=== PATIENT | female | born 1970 | race American Indian/Alaskan Native ===

== ENCOUNTER 2021-02-20 11:37 | Outpatient (CLI) | payer OTHER ==
--- NOTE | 2021-02-20 14:19 | XRay Report ---
CLINICAL DATA: BILATERAL KNEE PAIN TECHNICAL DATA: Two views were obtained, AP and lateral of both knees FINDINGS: Right knee: There is no acute fracture or dislocation. Moderate narrowing of the medial component of the femoral tibial articulation is noted. Fibrillation present Left knee: Total knee arthroplasties present IMPRESSION: Degenerative changes right knee as described Signer Name: Uziel Seymour MD Signed: 02/20/2021 2:14 PM Workstation Name: [id number]
== END 2021-02-20 11:38 | disposition home or self-care (01) ==
LOC: XRAY 11:37
PROVIDERS: ATTEND Internal Medicine
DX: M17.0 Bilateral primary osteoarthritis of knee (principal)